=== PATIENT | female | born 1960 | race Caucasian/White ===

== ENCOUNTER 2017-02-04 19:08 | Emergency (ER) | payer MEDICAID ==
[2017-02-04 19:18] VITALS: RESP 18; TEMP 98.2
[2017-02-04] MEDS ORDERED: Naproxen 550 mg Tab PO STA (19:54)
[2017-02-04] MEDS ORDERED: Naproxen 550 mg Tab PO ONE (20:06)
--- NOTE | 2017-02-04 20:07 | C.PDOC ---
History Of Present Illness 57 year old female who presents to the ER with a complaint of right wrist pain intermittently x 1 month after doing heavy lifting today at work. Patient reports taking OTC medication with no relief to pain; she notes the pain is radiating to the right hand and thumb. Denies weakness, numbness or direct trauma. Time Seen by Provider: 02/04/17 19:39 Chief Complaint (Nursing): Upper Extremity Problem/Injury History Per: Patient History/Exam Limitations: no limitations Onset/Duration Of Symptoms: Hrs Current Symptoms Are (Timing): Still Present Exacerbating Factor(s): Strenuous Use Of Affected Area Recent travel outside of the [place]: No Past Medical History Reviewed: Historical Data, Nursing Documentation, Vital Signs Vital Signs: Last Vital Signs Temp 98.2 F 02/04/17 19:14 Pulse 73 02/04/17 20:15 Resp 18 02/04/17 20:15 BP 141/82 02/04/17 20:15 Pulse Ox 100 02/04/17 21:53 - Medical History PMH: No Chronic Diseases Surgical History: No Surg Hx Family History: States: Unknown Family Hx - Social History Hx Alcohol Use: Yes Hx Substance Use: No - Immunization History Hx Tetanus Toxoid Vaccination: No Hx Influenza Vaccination: No Hx Pneumococcal Vaccination: No Review Of Systems Constitutional: Negative for: Fever, Chills Musculoskeletal: Positive for: Hand Pain Neurological: Negative for: Weakness, Numbness Physical Exam - Physical Exam Appears: Non-toxic Skin: Warm, Dry Head: Atraumatic, Normacephalic Oral Mucosa: Moist Extremity: Normal ROM, Tenderness (radial aspect of right hand dorsally), Capillary Refill (< 2 sec), No Deformity, No Swelling, No Other (Erythema, Ecchymosis) Extremity: Bilateral: Normal Color And Temperature Pulses: Left Radial: Normal, Right Radial: Normal Neurological/Psych: Oriented x3, Normal Motor, Normal Sensation ED Course And Treatment O2 Sat by Pulse Oximetry: 100 (Room air) Pulse Ox Interpretation: Normal Progress Note: Anaprox administered. On reevaluation, patient's pain has much improved, will place patient in right hand splint and instruct to follow up with ortho. Disposition Counseled Patient/Family Regarding: Diagnosis, Need For Followup, Rx Given - Disposition Referrals: Veronica Mathur MD [Primary Care Provider] - Disposition: HOME/ ROUTINE Disposition Time: 20:04 Condition: STABLE Additional Instructions: keep splint in for support Apply ICE to area Take pain meds as prescribed Follow up with your doctor Return to ER if worse Prescriptions: Naproxen [Naprosyn] 1 tab PO BID PRN #25 tab PRN Reason: Pain Instructions: Wrist Sprain (ED) Forms: [employer] ([employer]) - Clinical Impression Clinical Impression: Left wrist sprain - Scribe Statement The provider has reviewed the documentation as recorded by the Scribchong Rodriguez All medical record entries made by the Tahiraibchong were at my direction and personally dictated by me. I have reviewed the chart and agree that the record accurately reflects my personal performance of the history, physical exam, medical decision making, and the department course for this patient. I have also personally directed, reviewed, and agree with the discharge instructions and disposition.
[2017-02-04 20:15] VITALS: BP 141/82; PULSE 73
[2017-02-04 21:49] VITALS: O2SAT 100
== END 2017-02-04 20:20 | disposition home or self-care (01) ==
LOC: SUPCPDRO 19:08 → C.ER 19:08
DX: S63.501A Unspecified sprain of right wrist, initial encounter (principal); X50.9XXA Other and unspecified overexertion or strenuous movements or postures, initial encounter; Y92.89 Other specified places as the place of occurrence of the external cause; Y99.0 Civilian activity done for income or pay

== ENCOUNTER 2018-07-12 13:20 | Outpatient (CLI) | payer MEDICAID | END 2018-07-12 13:21 | disposition home or self-care (01) | LOC: C.MAMMO 13:20 | DX: Z12.31 Encounter for screening mammogram for malignant neoplasm of breast (principal) ==